=== PATIENT | female | born 1995 | race African-American/Black ===

== ENCOUNTER 2023-03-26 19:46 | Emergency (ER) | payer OTHER ==
[~2023-03-26] VITALS: Ht 177.8 cm; Wt 81.6 kg
[2023-03-26 20:00] VITALS: O2SAT 99
[2023-03-26] MEDS ORDERED: KETOROLAC TROMETHAMINE 30 MG/ML VIAL IV STA (20:45)
[2023-03-26] MEDS ORDERED: KETOROLAC TROMETHAMINE 30 MG/ML VIAL ONE (20:49)
[2023-03-26] MEDS ORDERED: GABAPENTIN300 MG PO (21:34)
== END 2023-03-26 21:46 | disposition home or self-care (01) ==
LOC: FSED 20:10
DX: G62.9 Polyneuropathy, unspecified (principal); R20.2 Paresthesia of skin
CPT/HCPCS: 80053; 81003; 81025; 85025; 99283; J1885